=== PATIENT | female | born 1970 | race African-American/Black ===

== ENCOUNTER → 2016-07-03 | Day surgery (SDC) | payer OTHER ==
[~2016-07-03] VITALS: Ht 162.6 cm; Wt 88.0 kg
[~2016-07-03] MED LIST: ACETAMINOPHEN 1000 MG/100 ML VIAL IV ONE; CHLORHEXIDINE GLUCONATE 2 % 1 PACK (2 CLOTHS) TOPICAL PRN; DO NOT ADM ANY ANTICOAGULANT DRUGS PRN; FAMOTIDINE 20 MG/2 ML VIAL ONE; INSULIN HUMAN REGULAR 1,000 UNITS/10 ML VIAL SQ PRN; IOHEXOL 350 MG/ML 50 ML BTL (for RAD DIAG) OTHER ONE; LACTATED RINGER'S 1000 ML INJ 1,000 ML IV ONE; LACTATED RINGER'S 1000 ML IV PRN; METOPROLOL TARTRATE 25 MG TAB PO PRN; MIDAZOLAM HCL 2 MG/2 ML VIAL ONE; MORPHINE SULFATE 4 MG/ML INJ IV PRN; ONDANSETRON HCL 4 MG/2 ML VIAL IV PUSH ONE; ONDANSETRON HCL 4 MG/2 ML VIAL IV PUSH PRN; POVIDONE IODINE 5% (ANTISEPSIS KIT) 4 APPLICATIONS EACH NARE PRN; PROPOFOL 200 MG/20 ML AMP IV ONE; SODIUM CHLORID 0.9% 500 ML IV PRN; VANCOMYCIN HCL 1000 MG ON-CALL/NS 250 ML IV SCH; ePHEDrine/NS 25 MG/5 ML SYR IV ONE; oxyCODONE/ACETAMINOPHEN 5 MG/325 MG TAB PO PRN
--- NOTE | 2016-07-03 07:27 | RADRPT ---
EXAM DATE/TIME: 07/03/2016 06:49 [place] COMPARISON: No previous studies available for comparison. INDICATIONS : Pre op stent placement MEDICAL HISTORY : None. SURGICAL HISTORY : None. ENCOUNTER: Initial ACUITY: 1 day PAIN SCORE: 0/10 LOCATION: Abdomen FINDINGS: Supine view of the abdomen was performed. The abdominal bowel gas pattern is normal. No abnormal ma sses, calcifications, or organomegaly is seen. The osseous structures are unremarkable. CONCLUSION: No acute disease. Garcia Lau MD on July 03, 2016 at 7:25 Board Certified Radiologist. This report was verified electronically.
[2016-07-03 07:40] VITALS: BP 109/65; PULSE 58; RESP 18; TEMP 97.9; O2SAT 100
[2016-07-03 07:57] LABS: AUTOMATED NEUTROPHIL # 2.9 TH/MM3 (1.8-7.7); BASOPHIL # 0.1 TH/MM3 (0-0.2); BASOPHIL % 1.1 % (0.0-2.0); EOSINOPHIL # 0.1 TH/MM3 (0-0.4); EOSINOPHIL % 2.7 % (0.0-4.0); HEMATOCRIT 35.6 % (35.0-46.0); HEMO FLAGS DIFF FINAL; LYMPH % 26.6 % (9.0-44.0); LYMPHOCYTE # 1.3 TH/MM3 (1.0-4.8); MEAN CELL VOLUME 80.4 FL (80.0-100.0); MEAN CORPUSCULAR HEMOGLOBIN 26.2 PG (27.0-34.0); MEAN CORPUSCULAR HGB CONC 32.6 % (32.0-36.0); MONO % 9.1 % (0.0-8.0); NEUT % 60.5 % (16.0-70.0); PLATELET COUNT 208 TH/MM3 (150-450); RED BLOOD COUNT 4.43 MIL/MM3 (4.00-5.30); RED CELL DISTRIBUTION WIDTH 13.4 % (11.6-17.2); WHITE BLOOD COUNT 4.8 TH/MM3 (4.0-11.0)
--- NOTE | 2016-07-03 10:28 | PD.OP ---
Operative Report Date of Surgery: Jul 03, 2016 Preoperative Diagnosis: 1.0 cm Right UPJ stone Postoperative Diagnosis: same Procedure: Cystoscopy with right retrograde study and right double-J stent insertion followed by right extraportal shockwave lithotripsy Anesthesia: Gen. LMA Surgeon: Luis Enrique Mooney [employer] Trimmer(s): None Resident Surgeon: None Operation and Findings: Patient was brought up removed it from itself as Yamilex Nova. She was placed in the dorsal lithotomy position, received preprocedure antibiotics, was prepped and draped in usual sterile fashion and general LMA anesthesia was administered. A 22 Prydeinig scope was inserted in the bladder razo cystoscopy did not reveal any abnormalities The right ureteral orifice was identified and a 5 Prydeinig opening catheter inserted into the left ureteral orifice. A right retrograde study was performed showing the stone located at the right UPJ. An 035 sensor wire was then passed through the open-ended catheter with a good curl in the upper pole the kidney. And then a 22 cm 6 Prydeinig right double-J stent was placed with a good curl in the kidney and bladder. The bladder was evacuated and she was placed in the supine position. ESWL therapy commenced with good fragmentation of stone visualized. The stone is gone back into the right lower pole. Stent was in good position. She tolerated the procedure well follow-up in 2 weeks. Prior to appointment she'll obtain a CT scan. Luis Enrique Mooney DO Jul 03, 2016 10:27
[2016-07-03 12:55] VITALS: BP 126/78; PULSE 66; RESP 16; TEMP 97.8; O2SAT 100
== END | disposition home or self-care (01) ==
LOC: HSDC 06:33
PROVIDERS: ATTEND Urology
DX: N20.2 Calculus of kidney with calculus of ureter (principal)
CPT/HCPCS: 00873; 50590; 52332; 74000; 85025; C1769; C2617; J0131; J2250; J2405; J3010; J3370; J7050; J7120; Q9967